=== PATIENT | male | born 1955 | race Caucasian/White ===

== ENCOUNTER 2018-09-04 08:35 | Outpatient (CLI) | payer BC, SELFPAY ==
[2018-09-04 09:55] LABS: Anion Gap 7.2 mmol/L (3-11); BUN 21 mg/dL (7-18); CO2 30.8 mmol/L (21.0-32.0); CREATININE 0.74 mg/dL (0.70-1.30); Calcium 8.8 mg/dL (8.5-10.1); Chloride 102 mmol/L (98-107); Glucose 93 mg/dL (70-100); Potassium 4.6 mmol/L (3.5-5.1); Sodium 140 mmol/L (136-145)
== END 2018-09-04 08:55 ==
PROVIDERS: PCP Family Medicine; Visit Provider Family Medicine
DX: Z00.00 Encounter for general adult medical examination without abnormal findings (principal); Z13.228 Encounter for screening for other metabolic disorders
CPT/HCPCS: 36415; 80048

== ENCOUNTER 2019-08-15 13:57 | Outpatient (CLI) | payer BC, SELFPAY ==
[2019-08-15 17:53] LABS: Calculated LDL 89 mg/dL (<100); Cholesterol 189 mg/dL (<200); HDL Cholesterol 78 mg/dL (40-60); Triglyceride 113 mg/dL (<150)
[2019-08-16 09:42] LABS: PSA, Screening 5.9 ng/mL (0.0-4.5)
== END 2019-08-15 14:17 ==
PROVIDERS: PCP Family Medicine; Visit Provider Family Medicine
DX: Z00.00 Encounter for general adult medical examination without abnormal findings (principal); Z13.220 Encounter for screening for lipoid disorders; Z12.5 Encounter for screening for malignant neoplasm of prostate
CPT/HCPCS: 36415; 80061; 84153

== ENCOUNTER 2020-08-27 03:17 | Outpatient (CLI) | payer BC, SELFPAY ==
[2020-08-27 09:51] LABS: ALT 36 U/L (16-63); AST 19 U/L (15-37); Albumin 3.8 g/dL (3.4-5.0); Alkaline Phosphatase 84 U/L (46-116); Anion Gap 5.4 mmol/L (3-11); BUN 16 mg/dL (7-18); Bilirubin, Total 1.5 mg/dL (0.2-1.0); CO2 32.6 mmol/L (21.0-32.0); CREATININE 0.7 mg/dL (0.70-1.30); Calcium 8.6 mg/dL (8.5-10.1); Chloride 105 mmol/L (98-107); Glucose 87 mg/dL (74-106); Potassium 4.6 mmol/L (3.5-5.1); Sodium 143 mmol/L (136-145); Total Protein 6.5 g/dL (6.4-8.2)
[2020-08-27 16:56] LABS: PSA, Screening 6.8 ng/mL (0.0-4.5)
== END 2020-08-27 03:18 | disposition home or self-care (01) ==
LOC: LBO 03:17
DX: Z00.00 Encounter for general adult medical examination without abnormal findings (principal); R97.20 Elevated prostate specific antigen [PSA]; Z12.5 Encounter for screening for malignant neoplasm of prostate
CPT/HCPCS: 36415; 80053; 84153

== ENCOUNTER 2021-08-13 02:18 | Outpatient (CLI) | payer BC, SELFPAY ==
[2021-08-13 18:44] LABS: PSA, Diagnostic 7.5 ng/mL (<=4.5)
== END 2021-08-13 02:19 | disposition home or self-care (01) ==
PROVIDERS: Visit Provider Urology
DX: R97.20 Elevated prostate specific antigen [PSA] (principal)
CPT/HCPCS: 36415; 84153

== ENCOUNTER 2021-09-15 03:56 | Outpatient (CLI) | payer BC, SELFPAY ==
[2021-09-15 09:17] LABS: ALT 28 U/L (16-63); AST 12 U/L (15-37); Albumin 4.1 g/dL (3.4-5.0); Alkaline Phosphatase 86 U/L (46-116); Anion Gap 6.3 mmol/L (3-11); BUN 19 mg/dL (7-18); Bilirubin, Total 1.5 mg/dL (0.2-1.0); CO2 29.7 mmol/L (21.0-32.0); CREATININE 0.8 mg/dL (0.70-1.30); Calcium 8.9 mg/dL (8.5-10.1); Chloride 105 mmol/L (98-107); Glucose 96 mg/dL (74-106); Potassium 4.4 mmol/L (3.5-5.1); Sodium 141 mmol/L (136-145); Total Protein 7.1 g/dL (6.4-8.2)
== END 2021-09-15 03:57 | disposition home or self-care (01) ==
LOC: LBO 03:56
DX: Z00.00 Encounter for general adult medical examination without abnormal findings (principal); R21 Rash and other nonspecific skin eruption
CPT/HCPCS: 36415; 80053

== ENCOUNTER 2022-02-15 03:17 | Outpatient (CLI) | payer BC, SELFPAY ==
[2022-02-16 17:34] LABS: PSA, Diagnostic 8.8 ng/mL (<=4.5)
== END 2022-02-15 03:18 | disposition home or self-care (01) ==
LOC: LBO 03:17
PROVIDERS: Visit Provider Urology
DX: R97.20 Elevated prostate specific antigen [PSA] (principal)
CPT/HCPCS: 36415; 84153

== ENCOUNTER 2022-07-15 03:24 | Outpatient (CLI) | payer MEDICARE, SELFPAY ==
[2022-07-15 20:55] LABS: PSA, Diagnostic 7.8 ng/mL (<=4.5)
== END 2022-07-15 03:25 | disposition home or self-care (01) ==
LOC: LBO 03:24
PROVIDERS: PCP Nurse Practitioner Family; Visit Provider Urology
DX: R97.20 Elevated prostate specific antigen [PSA] (principal)
CPT/HCPCS: 36415; 84153

== ENCOUNTER → 2022-07-22 08:03 | Outpatient (BNVA) | payer MEDICARE, SELFPAY | PROVIDERS: PCP Nurse Practitioner Family; Referring Provider Nurse Practitioner Family; Visit Provider Urology | DX: R97.20 Elevated prostate specific antigen [PSA] (principal) | CPT/HCPCS: 99213 ==

== ENCOUNTER 2022-10-21 01:48 | Outpatient (CLI) | payer MEDICARE, SELFPAY ==
[2022-10-21 20:06] LABS: PSA, Diagnostic 9.9 ng/mL (<=4.5)
[2022-10-24 10:22] LABS: Hepatitis C Ab w Rflx HCV PCR Negative (Negative)
[2022-10-25 09:39] LABS: Lab Add On Test DONE
[2022-10-26 13:13] LABS: HIV-1/2 Ag & Ab Screen Negative (Negative)
== END 2022-10-21 01:49 | disposition home or self-care (01) ==
LOC: LBO 01:48
PROVIDERS: PCP Nurse Practitioner Family; Visit Provider Urology
DX: R97.20 Elevated prostate specific antigen [PSA] (principal); Z11.59 Encounter for screening for other viral diseases
CPT/HCPCS: 36415; 86803; 87389; 84153

== ENCOUNTER → 2022-10-28 07:58 | Outpatient (BNVA) | payer MEDICARE, SELFPAY | PROVIDERS: PCP Nurse Practitioner Family; Visit Provider Urology | DX: R97.20 Elevated prostate specific antigen [PSA] (principal) | CPT/HCPCS: 99213 ==

== ENCOUNTER 2023-01-06 03:03 | Outpatient (CLI) | payer MEDICARE, SELFPAY ==
[2023-01-06 21:04] LABS: PSA, Diagnostic 7.2 ng/mL (<=4.5)
== END 2023-01-06 03:04 | disposition home or self-care (01) ==
LOC: LBO 03:07
PROVIDERS: PCP Nurse Practitioner Family; Visit Provider Urology
DX: R97.20 Elevated prostate specific antigen [PSA] (principal)
CPT/HCPCS: 36415; 84153

== ENCOUNTER → 2023-01-13 07:55 | Outpatient (BNVA) | payer MEDICARE, SELFPAY | PROVIDERS: PCP Nurse Practitioner Family; Visit Provider Urology | DX: R97.20 Elevated prostate specific antigen [PSA] (principal) | CPT/HCPCS: 99213 ==

== ENCOUNTER 2023-04-21 04:23 | Outpatient (CLI) | payer MEDICARE, SELFPAY ==
[2023-04-21 19:10] LABS: PSA, Diagnostic 7.4 ng/mL (<=4.5)
== END 2023-04-21 04:24 | disposition home or self-care (01) ==
LOC: LBO 04:23
PROVIDERS: PCP Nurse Practitioner Family; Visit Provider Urology
DX: R97.20 Elevated prostate specific antigen [PSA] (principal)
CPT/HCPCS: 36415; 84153

== ENCOUNTER → 2023-04-28 07:57 | Outpatient (BNVA) | payer MEDICARE, SELFPAY | PROVIDERS: PCP Nurse Practitioner Family; Visit Provider Urology | DX: R97.20 Elevated prostate specific antigen [PSA] (principal); N40.0 Benign prostatic hyperplasia without lower urinary tract symptoms | CPT/HCPCS: 99213 ==

== ENCOUNTER 2023-10-20 01:45 | Outpatient (CLI) | payer MEDICARE, SELFPAY ==
[2023-10-20 20:39] LABS: PSA, Diagnostic 9.1 ng/mL (<=4.5)
== END 2023-10-20 01:46 | disposition home or self-care (01) ==
LOC: LBO 01:46
PROVIDERS: PCP Nurse Practitioner Family; Visit Provider Urology
DX: R97.20 Elevated prostate specific antigen [PSA] (principal)
CPT/HCPCS: 36415; 84153

== ENCOUNTER → 2023-10-27 08:22 | Outpatient (BNVA) | payer MEDICARE, SELFPAY | PROVIDERS: PCP Nurse Practitioner Family; Visit Provider Urology | DX: N42.89 Other specified disorders of prostate (principal); R97.20 Elevated prostate specific antigen [PSA] | CPT/HCPCS: 99213 ==

== ENCOUNTER 2024-04-18 04:49 | Outpatient (CLI) | payer MEDICARE, SELFPAY ==
[2024-04-18 20:27] LABS: PSA, Diagnostic 7.8 ng/mL (<=4.5)
== END 2024-04-18 04:50 | disposition home or self-care (01) ==
LOC: LBO 04:49
PROVIDERS: Urology; PCP Nurse Practitioner Family; Visit Provider Nurse Practitioner Family
DX: R97.20 Elevated prostate specific antigen [PSA] (principal)
CPT/HCPCS: 36415; 84153

== ENCOUNTER 2024-11-06 08:47 | Outpatient (CLI) | payer MEDICARE, SELFPAY ==
[2024-11-06 19:26] LABS: PSA, Diagnostic 7.3 ng/mL (<=4.5)
== END 2024-11-06 08:48 | disposition home or self-care (01) ==
LOC: LBO 08:47
PROVIDERS: PCP Nurse Practitioner Family; Visit Provider Urology
DX: R97.20 Elevated prostate specific antigen [PSA] (principal)
CPT/HCPCS: 36415; 84153

== ENCOUNTER → 2024-11-12 14:39 | Outpatient (BNVA) | payer MEDICARE, SELFPAY | PROVIDERS: PCP Nurse Practitioner Family; Visit Provider Urology | DX: R97.20 Elevated prostate specific antigen [PSA] (principal) | CPT/HCPCS: 99213 ==